=== PATIENT | female | born 1950 | race Hispanic/Latino ===

== ENCOUNTER 2019-11-01 11:36 | Emergency (ER) | payer OTHER ==
--- OUTSIDE RECORDS SUMMARY | 2019-11-01 13:10 | XMS REPORT ---
:1950 Author Organization [facility] Address [address] [place] [address] [address] [place] [address] Care Team Providers Name Role Phone Unavailable Unavailable Unavailable Problems This patient has no known problems. Allergies, Adverse Reactions, Alerts This patient has no known allergies or adverse reactions. Medications This patient has no known medications. Procedures This patient has no known procedures. Results This patient has no known results.
--- NOTE | 2019-11-01 13:23 | RAD REPORT ---
EXAM DESCRIPTION: CT - Head C Spine Mpr Wo Con - 11/01/2019 1:07 pm CLINICAL HISTORY: Head and neck injury status post fall. Head and neck pain COMPARISON: None. TECHNIQUE: Computed axial tomography of the head and cervical spine was obtained. Sagittal and coronal reconstruction was performed. All CT scans are performed using dose optimization technique as appropriate and may include automated exposure control or mA/KV adjustment according to patient size. FINDINGS: Large left parietal scalp hematoma with heterogeneous densities. An intracranial bleed is not seen. The ventricles are normal in caliber. An extra-axial fluid collect ion is not noted.Fluid within the visualized sinuses and mastoids is not seen Loss of the normal lordosis of the cervical spine perhaps secondary to muscle spasm. Anterior fusion involves C5 and C6. Spondylosis involves the cervical spine A cervical fracture is not visualized. No dislocation is noted. IMPRESSION: Large heterogeneous left parietal scalp hematoma probably indicating active bleeding. No acute intracranial abnormality is seen. A cervical fracture is not visualized. If the patient continues to have symptoms to suggest intracra nial /spinal cord pathology then MRI would be recommended
--- NOTE | 2019-11-01 14:19 | ER ---
Nurse's Notes [facility] Name: Berenice Friedman Age: 68 yrs Sex: Female : 1950 Arrival Date: 11/01/2019 Time: 11:37 Bed 18 Private MD: Gabino Landers E Diagnosis: Superficial injury of head Presentation: 10/30 11:45 Care prior to arrival: None. 10/31 11:43 Chief complaint: Patient states: Standing with one foot on the ladder and one foot on jl7 the tub and lost my footing and fell and hit my head. Denies LOC, does not take blood thinners. Large hematoma noted to left posterior scalp. Coronavirus screen: Proceed with normal triage. Patient denies a cough. Patient denies shortness of breath or difficulty breathing. Patient denies measured and/or subjective temperature greater than 100.4F prior to today's visit. Patient denies travel on a cruise ship or to a country the [facility] currently lists as an affected area. Patient denies contact with known and/or suspected case of COVID-19. Ebola Screen: No symptoms or risks identified at this time. Initial Sepsis Screen: Does the patient meet any 2 criteria? No. Patient's initial sepsis screen is negative. Does the patient have a suspected source of infection? No. Patient's initial sepsis screen is negative. Risk Assessment: Do you want to hurt yourself or someone else? Patient reports no desire to harm self or others. Onset of symptoms was November 01, 2019 at 11:00. Care prior to arrival: None. 11:43 Method Of Arrival: Ambulatory [facility] 11:43 Acuity: BASILIO 3 [facility] 11:50 Mechanism of Injury: Fall. Trauma event details: Injury occurred in the [address], Injury occurred: at home. Injury occurred: November 01, 2019 Injury occurred at: 11:00. Triage Assessment: 11:49 General: Appears in no apparent distress. uncomfortable, Behavior is calm, cooperative, [facility] appropriate for age. Pain: Complains of pain in scalp Pain currently is 8 out of 10 on a pain scale. Neuro: Level of Consciousness is awake, alert, obeys commands, Oriented to person, place, time, situation. Cardiovascular: Patient's skin is warm and dry. Respiratory: Airway is patent Respiratory effort is even, unlabored, Respiratory pattern is regular, symmetrical. Derm: Skin is pink, warm \T\ dry. Musculoskeletal: Swelling present in scalp. Trauma Activation: Alert Physician: ED Physician; Name: ; Notified At: ; Arrived At: Physician: General Surgeon; Name: ; Notified At: ; Arrived At: Physician: Radiology; Name: ; Notified At: ; Arrived At: Physician: Respiratory; Name: ; Notified At: ; Arrived At: Physician: Lab; Name: ; Notified At: ; Arrived At: Historical: - Allergies: 11:49 No Known Allergies; jl7 - Home Meds: 11:49 Lisinopril Oral [Active]; Metoprolol Tartrate Oral [Active]; Prilosec Oral [Active]; jl7 aspirin 81 mg Oral TbEC [Active]; escitalopram oxalate oral [Active]; Simvastatin Oral [Active]; furosemide Oral [Active]; - PMHx: 11:49 Depression; High Cholesterol; Hypertension; GERD; jl7 - Immunization history:: Adult Immunizations up to date. - Social history:: Smoking status: Patient denies any tobacco usage or history of. - Immunization history: Last tetanus immunization: - up to date. Screenin:50 Abuse screen: Denies threats or abuse. Denies injuries from another. Tuberculosis jl7 screening: No symptoms or risk factors identified. 12:36 Nutritional screening: No deficits noted. Fall Risk None identified. Primary Survey: 11:50 NO uncontrolled hemorrhage observed. Breathing/Chest: Respiratory pattern: regular, jl7 Respiratory effort: spontaneous, unlabored, Chest inspection: symmetrical rise and fall of the chest. Circulation: Skin color: pink, Skin temperature: warm. Disability Alert. Exposure/Environment: Obvious injury(ies) are noted at this time: hematoma to right posterior scalp. 12:10 Reassessment Airway Airway Patent Breathing/Chest Respiratory pattern Regular Respiratory effort Spontaneous Circulation Heart rhythm Sinus rhythm Pulses Palpable Color [place] Temperature Warm Disability Alert. Assessment: 12:03 General: Appears uncomfortable, Behavior is calm, cooperative, appropriate for age. 12:03 Pain: Complains of pain in left supraclavicular area Pain currently is 6 out of 10 on a pain scale. 12:03 Neuro: Level of Consciousness is awake, alert, obeys commands, Oriented to person, ah place, time, situation, Head Swamper are equal bilaterally Speech is normal, Pupils are PERRLA. Cardiovascular: Heart tones S1 S2 present. Respiratory: Airway is patent Respiratory effort is even, unlabored, Respiratory pattern is regular, symmetrical. GI: No signs and/or symptoms were reported involving the gastrointestinal system. : No signs and/or symptoms were reported regarding the genitourinary system. EENT: No signs and/or symptoms were reported regarding the EENT system. Derm: No signs and/or symptoms reported regarding the dermatologic system. Musculoskeletal: Circulation, motion, and sensation intact. Capillary refill < 3 seconds, Pt has raised area to back of the head. Skin intact. Pt c/o pain to left side of neck and shoulder. 12:58 Reassessment: Pt to radiology via for CT scan. 13:10 Reassessment: pt returned from CT scan. 14:02 Reassessment: Patient and/or family updated on plan of care and expected duration. Pain ah level reassessed. Pt lying in bed with no c/o voiced at this time. 14:40 Reassessment: Ice pack applied to head. Vital Signs: 11:43 BP 172 / 85; Pulse 73; Resp 16; Temp 98.7; Pulse Ox 97% ; Weight 74.84 kg; Pain 8/10; jl7 12:45 BP 160 / 68; Pulse 61; Resp 16; Pulse Ox 97% ; ah 13:45 BP 165 / 74; Pulse 64; Resp 15; Pulse Ox 98% ; ah Juli Coma Score: 11:50 Eye Response: spontaneous(4). Verbal Response: oriented(5). Motor Response: obeys jl7 commands(6). Total: 15. 12:45 Eye Response: spontaneous(4). Verbal Response: oriented(5). Motor Response: obeys commands(6). Total: 15. 13:45 Eye Response: spontaneous(4). Verbal Response: oriented(5). Motor Response: obeys commands(6). Total: 15. Trauma Score (Adult): 11:50 Eye Response: spontaneous(1); Verbal Response: oriented(1); Motor Response: obeys jl7 commands(2); Systolic BP: > 89 mm Hg(4); Respiratory Rate: 10 to 29 per min(4); Juli Score: 15; Trauma Score: 12 ED Course: 11:37 Patient arrived in ED. ag5 11:38 Gabino Landers MD is Private Physician. ag5 11:39 Tono Villeda MD is Attending Physician. kdr 11:45 Thermoregulation: warm blanket given to patient. ah 11:46 Triage completed. jl7 11:49 Arm band placed on right wrist. jl7 12:28 Kalpana Petersen, RN is Primary Nurse. iw 12:37 Patient has correct armband on for positive identification. Bed in low position. Call light in reach. Side rails up X2. 13:07 CT Head C Spine In Process Unspecified. EDMS 14:13 Gabino Landers MD is Referral Physician. kdr 14:41 No provider procedures requiring assistance completed. Patient did not have IV access ah during this emergency room visit. 14:41 Patient maintains SpO2 saturation greater than 95% on room air. iw Administered Medications: No medications were administered Intake: 12:45 PO: 0ml; Total: 0ml. ah 14:30 PO: 0ml; Total: 0ml. ah Output: 12:45 Urine: 0ml; Total: 0ml. ah 14:30 Urine: 0ml; Total: 0ml. ah Outcome: 14:18 Discharge ordered by MD. kdr 14:30 Discharged to home ambulatory. ah 14:30 Condition: good 14:30 Discharge instructions given to patient, Instructed on discharge instructions, follow up and referral plans. medication usage, Demonstrated understanding of instructions, follow-up care, medications, Prescriptions given X 1. 14:57 Pt not true trauma and awaiting on ER MD to discuss resultsPatient's length of stay ah extended due to 15:00 Patient left the ED. Signatures: Dispatcher [employer] EDNY Tono Villeda MD MD [facility] Kalpana Petersen, TOMI KRISHNA Jackie Wilcox RN RN jl7 Bhavesh Magallanes ag5 Sarah Hill RN RN Corrections: (The following items were deleted from the chart) 12:36 12:03 Pain: Complains of pain in left supraclavicular area ah
--- NOTE | 2019-11-01 14:20 | EDPHYS ---
Physician Documentation [facility] Name: Berenice Friedman Age: 68 yrs Sex: Female : 1950 Arrival Date: 11/01/2019 Time: 11:37 Bed 18 Private MD: Gabino Landers E ED Physician Tono Villeda HPI: 10/31 12:36 This 68 yrs old Female presents to ER via Ambulatory with complaints of Fall kdr Injury, Head Injury-Adult. 12:36 Details of fall: The patient fell from a height, from a ladder, approximately 3 feet, kdr from an upright position. Onset: The symptoms/episode began/occurred suddenly, just prior to arrival. Associated injuries: The patient sustained injury to the head, contusion, hematoma, pain, swelling, tenderness. Severity of symptoms: At their worst the symptoms were mild, moderate, just prior to arrival. The patient has not experienced similar symptoms in the past. The patient has not recently seen a physician. The patient was on a short ladder cleaning in the bathroom when she fell from the ladder and struck her head on the tile floor. Historical: - Allergies: 11:49 No Known Allergies; jl7 - Home Meds: 11:49 Lisinopril Oral [Active]; Metoprolol Tartrate Oral [Active]; Prilosec Oral [Active]; jl7 aspirin 81 mg Oral TbEC [Active]; escitalopram oxalate oral [Active]; Simvastatin Oral [Active]; furosemide Oral [Active]; - PMHx: 11:49 Depression; High Cholesterol; Hypertension; GERD; jl7 - Immunization history:: Adult Immunizations up to date. - Social history:: Smoking status: Patient denies any tobacco usage or history of. - Immunization history: Last tetanus immunization: - up to date. ROS: 12:36 Constitutional: Negative for fever, chills, and weight loss, Eyes: Negative for injury, kdr pain, redness, and discharge, ENT: Negative for injury, pain, and discharge, Neck: Negative for injury, pain, and swelling, Cardiovascular: Negative for chest pain, palpitations, and edema, Respiratory: Negative for shortness of breath, cough, wheezing, and pleuritic chest pain, Abdomen/GI: Negative for abdominal pain, nausea, vomiting, diarrhea, and constipation, Back: Negative for injury and pain, : Negative for injury, bleeding, discharge, and swelling, MS/Extremity: Negative for injury and deformity, Skin: Negative for injury, rash, and discoloration, Neuro: Negative for headache, weakness, numbness, tingling, and seizure activity. Psych: Negative for depression, anxiety, suicide ideation, homicidal ideation, and hallucinations, Allergy/Immunology: Negative for hives, rash, and allergies, Endocrine: Negative for neck swelling, polydipsia, polyuria, polyphagia, and marked weight changes, Hematologic/Lymphatic: Negative for swollen nodes, abnormal bleeding, and unusual bruising. Exam: 12:36 Constitutional: This is a well developed, well nourished patient who is awake, alert, kdr and in no acute distress. Eyes: Pupils equal round and reactive to light, extra-ocular motions intact. Lids and lashes normal. Conjunctiva and sclera are non-icteric and not injected. Cornea within normal limits. Periorbital areas with no swelling, redness, or edema. ENT: Nares patent. No nasal discharge, no septal abnormalities noted. Tympanic membranes are normal and external auditory canals are clear. Oropharynx with no redness, swelling, or masses, exudates, or evidence of obstruction, uvula midline. Mucous membranes moist. Neck: Trachea midline, no thyromegaly or masses palpated, and no cervical lymphadenopathy. Supple, full range of motion without nuchal rigidity, or vertebral point tenderness. No Meningismus. Chest/axilla: Normal chest wall appearance and motion. Nontender with no deformity. No lesions are appreciated. Cardiovascular: Regular rate and rhythm with a normal S1 and S2. No gallops, murmurs, or rubs. Normal PMI, no JVD. No pulse deficits. Respiratory: Lungs have equal breath sounds bilaterally, clear to auscultation and percussion. No rales, rhonchi or wheezes noted. No increased work of breathing, no retractions or nasal flaring. Abdomen/GI: Soft, non-tender, with normal bowel sounds. No distension or tympany. No guarding or rebound. No evidence of tenderness throughout. Back: No spinal tenderness. No costovertebral tenderness. Full range of motion. Skin: Warm, dry with normal turgor. Normal color with no rashes, no lesions, and no evidence of cellulitis. MS/ Extremity: Pulses equal, no cyanosis. Neurovascular intact. Full, normal range of motion. Neuro: Awake and alert, GCS 15, oriented to person, place, time, and situation. Cranial nerves II-XII grossly intact. Motor strength 5/5 in all extremities. Sensory grossly intact. Cerebellar exam normal. Normal gait. Psych: Awake, alert, with orientation to person, place and time. Behavior, mood, and affect are within normal limits. 12:36 Head/face: Noted is no obvious of injury or deformity except contusion, ecchymosis, hematoma, that is moderate, of the left side of the back of head, left occipital area and right side of the back of head, swelling, that is moderate, tenderness. Vital Signs: 11:43 BP 172 / 85; Pulse 73; Resp 16; Temp 98.7; Pulse Ox 97% ; Weight 74.84 kg; Pain 8/10; jl7 12:45 BP 160 / 68; Pulse 61; Resp 16; Pulse Ox 97% ; ah 13:45 BP 165 / 74; Pulse 64; Resp 15; Pulse Ox 98% ; ah [place] Coma Score: 11:50 Eye Response: spontaneous(4). Verbal Response: oriented(5). Motor Response: obeys jl7 commands(6). Total: 15. 12:45 Eye Response: spontaneous(4). Verbal Response: oriented(5). Motor Response: obeys ah commands(6). Total: 15. 13:45 Eye Response: spontaneous(4). Verbal Response: oriented(5). Motor Response: obeys ah commands(6). Total: 15. Trauma Score (Adult): 11:50 Eye Response: spontaneous(1); Verbal Response: oriented(1); Motor Response: obeys jl7 commands(2); Systolic BP: > 89 mm Hg(4); Respiratory Rate: 10 to 29 per min(4); Juli Score: 15; Trauma Score: 12 MDM: 14:18 Patient medically screened. kdr 15:54 Data reviewed: vital signs, nurses notes, lab test result(s). kdr 10/31 12:25 Order name: CT Head C Spine; Complete Time: 13:36 kdr 10/31 13:38 Order name: Parviz Wrap: To scalp; Complete Time: 14:05 kdr 10/31 13:38 Order name: Ice pack; Complete Time: 14:05 kdr Administered Medications: No medications were administered Disposition: 11/01/19 14:18 Discharged to Home. Impression: Superficial injury of head. - Condition is Stable. - Discharge Instructions: Hematoma, [id number], Head Injury, Adult, [id number]. - Prescriptions for Tramadol 50 mg Oral Tablet - take 1 tablet by ORAL route every 8 hours as needed; 16 tablet. - Medication Reconciliation Form, Thank You Letter, Prescription Opioid Use form. - Follow up: Gabino Landers MD; When: 2 - 3 days; Reason: Further diagnostic work-up, Recheck today's complaints, Continuance of care, Re-evaluation by your physician. - Problem is new. - Symptoms have improved. Signatures: Dispatcher [employer] EDMS Tono Villeda MD MD kdr Kalpana Petersen RN RN Jackie Wilcox RN RN jl7 Sarah Hill RN RN Corrections: (The following items were deleted from the chart) 15:00 14:18 11/01/2019 14:18 Discharged to Home. Impression: Superficial injury of head. ah Condition is Stable. Forms are Medication Reconciliation Form, Thank You Letter, Antibiotic Education, Prescription Opioid Use. Follow up: Gabino Landers; When: 2 - 3 days; Reason: Further diagnostic work-up, Recheck today's complaints, Continuance of care, Re-evaluation by your physician. Problem is new. Symptoms have improved. kdr
[2019-11-01 15:05] VITALS: TEMP 98.7
[2019-11-01 15:08] VITALS: BP 165/74; O2SAT 98
== END 2019-11-01 15:00 | disposition home or self-care (01) ==
LOC: ER 11:36
DX: S00.90XA Unspecified superficial injury of unspecified part of head, initial encounter (principal); W11.XXXA Fall on and from ladder, initial encounter; Y93.E9 Activity, other interior property and clothing maintenance; Y92.9 Unspecified place or not applicable; I10 Essential (primary) hypertension; F32.9 Major depressive disorder, single episode, unspecified; E78.00 Pure hypercholesterolemia, unspecified; Z79.82 Long term (current) use of aspirin
CPT/HCPCS: 70450; 72125; 99284